=== PATIENT | female | born 1965 | race Two or more races ===

== ENCOUNTER 2018-02-06 16:28 | Emergency (ER) | payer OTHER ==
[~2018-02-06] VITALS: Ht 152.4 cm; Wt 60.3 kg
[2018-02-06 17:06] VITALS: BP 138/75
== END 2018-02-06 18:40 | disposition home or self-care (01) ==
LOC: ER 16:30
DX: S00.03XA Contusion of scalp, initial encounter (principal); S40.012A Contusion of left shoulder, initial encounter; Z98.890 Other specified postprocedural states; W07.XXXA Fall from chair, initial encounter; Y93.89 Activity, other specified; Y92.89 Other specified places as the place of occurrence of the external cause; Y99.0 Civilian activity done for income or pay
CPT/HCPCS: 70450-TC; A4606; Z7610